=== PATIENT | female | born 1990 | race Caucasian/White ===

== ENCOUNTER 2017-03-05 13:14 | Emergency (ER) | payer BC ==
[2017-03-05 13:20] VITALS: BP 122/82; PULSE 106; TEMP 98.1; BMI 27.2
--- NOTE | 2017-03-05 13:31 | PDOC ---
History of Present Illness - General Chief Complaint: Abscess Boil Stated Complaint: LEG PAIN Time Seen by Provider: 03/05/17 13:29 History Source: Patient Exam Limitations: No Limitations - History of Present Illness Initial Comments: CHIEF COMPLAINT: 26 y/o afebrile female with leg abscess. HISTORY OF PRESENT ILLNESS: The patient states she was diagnosed with MRSA on her face last year and had to have the abscess surgically removed. She states the abscess showed up on her left leg yesterday. She denies f/c, n/v/d, streaking. She also informs me she is . Vital signs on arrival are notable for pulse of 106. REVIEW OF SYSTEMS: GENERAL/CONSTITUTIONAL: No fever/chills. No weakness. No weight change. MUSCULOSKELETAL: No joint or muscle swelling or pain. No neck or back pain. SKIN: +painful abscess to left leg. NEUROLOGIC: No headache, vertigo, loss of consciousness, or loss of sensation. PHYSICAL EXAM: VITAL_SIGNS: within normal limits GENERAL_APPEARANCE: alert, cooperative, no obvious discomfort. MENTAL_STATUS: speech clear, oriented X 3, responds appropriately to questions. NEURO: motor intact and sensory intact in injured extremity. EXTREMITIES: 0.5cm left, medial, proximal, slightly raised, non fluctuant papule of thigh with o.5cm surrounding erythema. No streaking. SKIN: warm, dry, good color. Past History - Past Medical History Allergies/Adverse Reactions: Allergies Allergy/AdvReac Type Severity Reaction Status Date / Time No Known Allergies Allergy Verified 03/05/17 13:16 Home Medications: Ambulatory Orders NK [No Known Home Medication] 03/05/17 Anemia: No Asthma: No Cancer: No Cardiac Disorders: No CVA: No COPD: No CHF: No Dementia: No Diabetes: No GI Disorders: No Disorders: No HTN: No Hypercholesterolemia: No Liver Disease: No Seizures: No Thyroid Disease: No - Surgical History Abdominal Surgery: No Appendectomy: No Cardiac Surgery: No Cholecystectomy: No Lung Surgery: No Neurologic Surgery: No Orthopedic Surgery: No - Immunization History Immunization Up to Date: Yes - Psycho/Social/Smoking Cessation Hx Anxiety: No Suicidal Ideation: No Smoking History: Never smoked Have you smoked in the past 12 months: No Information on smoking cessation initiated: No Hx Alcohol Use: No Drug/Substance Use Hx: No Substance Use Type: None Hx Substance Use Treatment: No *Physical Exam - Vital Signs Last Vital Signs Temp Pulse Resp BP Pulse Ox 98.1 F 106 H 18 122/82 100 03/05/17 13:17 03/05/17 13:17 03/05/17 13:17 03/05/17 13:17 03/05/17 13:17 Medical Decision Making - Medical Decision Making A/P: 26 y/o afebrile, female with very small left leg non fluctuant abscess/cellulitis with prior history of MRSA. Given the patient is will instruct her to apply hot compresses hourly at home in the hopes of the abscess opening and draining. Will not give abx at this time given her . Instructed the patient to return to the ER if she develops fever, the abscess does not open/worsens, or if any other concerning symptoms arise. The patient verbalizes understanding of all instructions, has no further questions and is awaiting discharge. *DC/Admit/Observation/Transfer Diagnosis at time of Disposition: Left leg cellulitis - Discharge Dispostion Disposition: HOME Condition at time of disposition: Good - Patient Instructions Printed Discharge Instructions: DI for Cellulitis -- Adult Additional Instructions: Discharge Instructions: -Apply hot compresses hourly for the next few days until abscess opens -Return to the ER with any worsening or concerning symptoms, including if the abscess doesn't open or gets worse.
== END 2017-03-05 14:05 | disposition home or self-care (01) ==
LOC: JERFT 13:14
DX: O26.899 Other specified pregnancy related conditions, unspecified trimester (principal); L03.116 Cellulitis of left lower limb; Z86.14 Personal history of Methicillin resistant Staphylococcus aureus infection
CPT/HCPCS: 99281-25

== ENCOUNTER 2017-03-06 16:47 | Emergency (ER) | payer BC ==
[2017-03-06 16:52] VITALS: BP 147/83; PULSE 77; TEMP 98.3; BMI 27.9
[2017-03-06] MEDS ORDERED: ACETAMINOPHEN 500 MG TABLET (FP) PO ONE (17:38)
[2017-03-06] MEDS ORDERED: ACETAMINOPHEN 500 MG TABLET (FP) ONE (17:40)
--- NOTE | 2017-03-06 18:18 | PDOC ---
History of Present Illness - General Chief Complaint: Abscess Boil Stated Complaint: LEG PAIN Time Seen by Provider: 03/06/17 17:36 History Source: Patient Exam Limitations: No Limitations - History of Present Illness Initial Comments: 03/06/17 18:16 My Chief complaint: Left upper thigh raised tender area getting worse History of present illness: Patient is a 26-year-old female with a history of having infections of the skin with MRSA here today with a raised tender reddened area to her left proximal medial thigh that is getting worse. Patient was seen here yesterday was told to apply warm soaks to area patient did and reports area is more tender. Patient has not taken anything for pain. Patient took a home test that was positive yesterday. Patient requesting test done here. Patient denies any fever. Patient reports having had MRSA on all her left cheek left wrist and other parts of her body. Patient reports that she was admitted here due to the infection with MRSA on her left cheek in 2015. Timing/Duration: getting worse (left medial proximal thigh ) Severity: moderate Associated Symptoms: reports: denies symptoms Past History - Past Medical History Allergies/Adverse Reactions: Allergies Allergy/AdvReac Type Severity Reaction Status Date / Time No Known Allergies Allergy Verified 03/06/17 16:52 Home Medications: Ambulatory Orders NK [No Known Home Medication] 03/05/17 Anemia: No Asthma: No Cancer: No Cardiac Disorders: No CVA: No COPD: No CHF: No Dementia: No Diabetes: No GI Disorders: No Disorders: No HTN: No Hypercholesterolemia: No Liver Disease: No Seizures: No Thyroid Disease: No Other medical history: h/o MRSA - Surgical History Abdominal Surgery: No Appendectomy: No Cardiac Surgery: No Cholecystectomy: No Lung Surgery: No Neurologic Surgery: No Orthopedic Surgery: No - Immunization History Immunization Up to Date: Yes - Psycho/Social/Smoking Cessation Hx Anxiety: No Suicidal Ideation: No Smoking History: Never smoked Have you smoked in the past 12 months: No Hx Alcohol Use: Yes (SOCIAL) Drug/Substance Use Hx: No Substance Use Type: None Hx Substance Use Treatment: No Review of Systems - Review of Systems Able to Perform ROS?: Yes Constitutional: No: Symptoms Reported HEENTM: No: Symptoms Reported Respiratory: No: Symptoms reported Cardiac (ROS): No: Symptoms Reported ABD/GI: No: Symptoms Reported Musculoskeletal: No: Symptoms Reported Integumentary: Yes: Other (left medial proximal thigh raised tender area f) Neurological: No: Symptoms reported *Physical Exam - Vital Signs Last Vital Signs Temp Pulse Resp BP Pulse Ox 98.3 F 77 20 147/83 99 03/06/17 16:49 03/06/17 16:49 03/06/17 16:49 03/06/17 16:49 03/06/17 16:49 - Physical Exam General Appearance: Yes: Appropriately Dressed Respiratory/Chest: positive: Lungs Clear, Normal Breath Sounds. negative: Chest Tender, Respiratory Distress Cardiovascular: positive: Regular Rhythm, Regular Rate, S1, S2 Integumentary: positive: Other (left proximal medial thigh raised tender fluculant area dime size ) Neurologic: positive: Normal Response, Respond to painful stimul (left medial thigh) Procedures - Consent Consent obtained: From Patient - Incision and Drainage I&D Site: Left: Leg (medial proximal thigh ) Betadine cleansed: Yes Anesthesia: 1% Lidocaine Blade Size: 11 Attempts: 1 Complications: none Dressing: Yes (DSD with tegaderm ) ED Treatment Course - ADDITIONAL ORDERS Additional order review: Laboratory Results 03/06/17 17:42 Urine HCG, Qual Positive - Medications Given in the ED: ED Medications Discontinued Medications Generic Name Dose Route Start Last Admin Trade Name Killian PRN Reason Stop Dose Admin Acetaminophen 1,000 mg 03/06/17 17:38 03/06/17 17:42 Tylenol - PO 03/06/17 17:39 1,000 mg ONCE ONE Administration Medical Decision Making - Medical Decision Making 03/06/17 18:18 Patient is a 26-year-old female with a history of having infections of the skin with MRSA here today with a raised tender reddened area to her left proximal medial thigh that is getting worse. Patient was seen here yesterday was told to apply warm soaks to area patient did and reports area is more tender. Patient has not taken anything for pain. Patient took a home test that was positive yesterday. Patient requesting test done here. Patient denies any fever. Patient reports having had MRSA on all her left cheek left wrist and other parts of her body. Patient reports that she was admitted here due to the infection with MRSA on her left cheek in 2015. Left medial proximal thigh abscess PLAN: acetaminophen in 1000 mg by mouth now I & D left thigh abscess with minimal return of white thick substance Wound C & S Patient to apply warm soaks to area every couple of hours while awake today tomorrow and to return for wound check in 2 days *DC/Admit/Observation/Transfer Diagnosis at time of Disposition: Abscess of left thigh - Discharge Dispostion Disposition: HOME Condition at time of disposition: Stable - Patient Instructions Additional Instructions: apply warm soaks to left thigh tender area to help facilitate drainage every 2 hours while awake Cleanse area with antibacterial soap and water twice daily do not apply any ointments put on dressing during day let air out at night Tylenol or acetaminophen as needed as directed by salt maker for pain Return here in 2 days for wound check or sooner if any fever or redness around wound Patient voiced understanding of discharge instructions all questions were answered
== END 2017-03-06 18:28 | disposition home or self-care (01) ==
LOC: JERFT 16:47
PROC: 0H9JXZZ Drainage of Left Upper Leg Skin, External Approach (ICD-10-PCS; principal; 2017-03-06)
DX: L02.416 Cutaneous abscess of left lower limb (principal)
CPT/HCPCS: 84703; 87070; 87186; 87205; 99281-25

== ENCOUNTER 2017-09-02 19:26 | Emergency (ER) | payer BC ==
--- NOTE | 2017-09-02 20:14 | PDOC ---
Rapid Medical Evaluation Time Seen by Provider: 09/02/17 20:09 Medical Evaluation: Allergies Allergy/AdvReac Type Severity Reaction Status Date / Time No Known Allergies Allergy Verified 03/06/17 16:52 09/02/17 20:10 I have performed a brief in-person evaluation of this patient. The patient presents with a chief complaint of: abscess to right side of face since yesterday. Patient reports history of MRSA, complaining of pain and redness at site. Reports chills. implanon in place Pertinent physical exam findings: NAD HEENT:small abscess tor right temporal region of face, indurated and erythematous, PERRL lungs clear, unlabored breathing neuro: EOMI, steady gait I have ordered the following: analgesia The patient will proceed to the ED for further evaluation.
[2017-09-02 20:15] VITALS: BP 145/86; PULSE 91; TEMP 98.5; BMI 26.4
[2017-09-02] MEDS ORDERED: IBUPROFEN 600 MG TABLET (FP) PO ONE ×2 (20:17→20:35)
--- NOTE | 2017-09-02 20:38 | PDOC ---
History of Present Illness - General Chief Complaint: Wound Infection Stated Complaint: BUMP Time Seen by Provider: 09/02/17 20:09 History Source: Patient - History of Present Illness Timing/Duration: reports: yesterday Location: reports: face Past History - Past Medical History Allergies/Adverse Reactions: Allergies Allergy/AdvReac Type Severity Reaction Status Date / Time No Known Allergies Allergy Verified 03/06/17 16:52 Home Medications: Ambulatory Orders Clindamycin [Cleocin -] 300 mg PO Q6HPO #28 capsule 09/02/17 Ibuprofen [Motrin -] 600 mg PO QID #28 tablet 09/02/17 Anemia: No Asthma: No Cancer: No Cardiac Disorders: No CVA: No COPD: No CHF: No Dementia: No Diabetes: No GI Disorders: No Disorders: No HTN: No Hypercholesterolemia: No Liver Disease: No Seizures: No Thyroid Disease: No - Surgical History Abdominal Surgery: No Appendectomy: No Cardiac Surgery: No Cholecystectomy: No Lung Surgery: No Neurologic Surgery: No Orthopedic Surgery: No - Immunization History Immunization Up to Date: Yes - Suicide/Smoking/Psychosocial Hx Smoking History: Never smoked Have you smoked in the past 12 months: No Hx Alcohol Use: Yes (SOCIAL) Drug/Substance Use Hx: No Substance Use Type: None Hx Substance Use Treatment: No Review of Systems - Review of Systems Constitutional: No: Chills, Fever *Physical Exam - Vital Signs Last Vital Signs Temp Pulse Resp BP Pulse Ox 98.5 F 91 H 145/86 99 09/02/17 20:05 09/02/17 20:05 09/02/17 20:05 09/02/17 20:05 - Physical Exam General Appearance: Yes: Appropriately Dressed. No: Apparent Distress HEENT: positive: Normal Voice, Other (pustule to L congregational) Neck: positive: Supple Respiratory/Chest: negative: Respiratory Distress Integumentary: positive: Dry, Warm Neurologic: positive: Fully Oriented, Alert, Normal Mood/Affect Procedures - Incision and Drainage I&D Site: Right: Other (R congregational) Betadine cleansed: Yes Anesthesia: 1% Lidocaine Volume(ml): 5 Blade Size: 11 Attempts: 1 (copious purulent discharge) Plain Packing: No Dressing: Yes Medical Decision Making - Medical Decision Making 09/02/17 20:34 26-year-old female, history of recurrent MRSA abscesses, here with pain and swelling to R side of face since yesterday. No fever or chills. Patient well- appearing and stable with what appears to be a small pustule to right congregational, does not involve periorbital area. Will perform I&D in ED and send home with antibiotics with MRSA coverage with wound check in 2 days. Tetanus UTD 09/02/17 20:56 Pt s/p I&D in ED with copious purulent discharge. No need for packing placement as wound superficial. Topical antibiotics and sterile dressing place. Patient to start Clindamycin immediately and to return to ED in 2 days for wound check. Reasons to return sooner discussed with patient *DC/Admit/Observation/Transfer Diagnosis at time of Disposition: Facial abscess - Discharge Dispostion Disposition: HOME Condition at time of disposition: Improved - Prescriptions Prescriptions: Clindamycin [Cleocin -] 300 mg PO Q6HPO #28 capsule Ibuprofen [Motrin -] 600 mg PO QID #28 tablet - Referrals - Patient Instructions Printed Discharge Instructions: DI for Incision and Drainage of a Skin Abscess Additional Instructions: Keep wound clean and dry for 2 days, after which you can apply warm compresses for 20 minutes several times a day. Take antibiotics as directed Return to ER for wound check in 2 days - Post Discharge Activity Forms/Work/School Notes: Back to Work
[2017-09-02] MEDS ORDERED: CLINDAMYCIN HCL 150 MG CAPSULE (FP) PO ONE (20:54)
== END 2017-09-02 21:01 | disposition home or self-care (01) ==
LOC: JERFT 19:26
PROC: 0H91X0Z Drainage of Face Skin with Drainage Device, External Approach (ICD-10-PCS; principal; 2017-09-02)
DX: L02.01 Cutaneous abscess of face (principal); Z86.14 Personal history of Methicillin resistant Staphylococcus aureus infection
CPT/HCPCS: 99281-25

== ENCOUNTER 2018-03-27 16:55 | Emergency (ER) | payer SELFPAY ==
[2018-03-27] MEDS ORDERED: DIPHTH,PERTUSS(ACELL),TET 0.5 ML DISP.SYRIN IM ONE (17:22)
--- NOTE | 2018-03-27 17:22 | PDOC ---
Rapid Medical Evaluation Time Seen by Provider: 03/27/18 17:17 Medical Evaluation: Allergies Allergy/AdvReac Type Severity Reaction Status Date / Time No Known Allergies Allergy Verified 03/06/17 16:52 03/27/18 17:18 I have performed a brief-in person evaluation of this patient in triage. The patient presents to the ER c/o: left foot got stuck in a public drain when she tripped and fell @~1630hrs Pertinent PE findings: superficial 2cm transverse abrasion to tight mid to upper medial lower leg +Left 2nd toenail avulsed off Left great toenail broken UNK LAST TETANUS I have ordered the following: boostrix The patient will proceed to the ED for further evaluation. 03/27/18 17:23
[2018-03-27 17:28] VITALS: BP 147/89; PULSE 68; TEMP 98.3; BMI 28.7
[2018-03-27] MEDS ORDERED: BACITRACIN 15 GM TUBE TOPICAL OINTMENT TP ONE (17:48)
[2018-03-27] MEDS ORDERED: KETOROLAC TROMETHAMINE 60 MG/2 ML VIAL IM ONE (17:48)
--- NOTE | 2018-03-27 17:48 | PDOC ---
History of Present Illness - General Chief Complaint: Injury Stated Complaint: LEG INJURY Time Seen by Provider: 03/27/18 17:17 History Source: Patient Exam Limitations: No Limitations - History of Present Illness Initial Comments: CHIEF COMPLAINT: 27 y/o afebrile female c/o right leg laceration and left toe nail injury today. HISTORY OF PRESENT ILLNESS: patient was shopping at [employer] when her left foot got caught in a metal grate. her left second toe nail was ripped off and she sustained a cut to her right leg. patient does not know her tetanus status. Vital signs on arrival are within normal limits. REVIEW OF SYSTEMS: GENERAL/CONSTITUTIONAL: No fever/chills. No weakness. No weight change. MUSCULOSKELETAL: +left second toe nail injury. cut to right leg. No neck or back pain. SKIN: No rash or easy bruising. NEUROLOGIC: No headache, vertigo, loss of consciousness, or loss of sensation. PHYSICAL EXAM: VITAL_SIGNS: within normal limits GENERAL_APPEARANCE: alert, cooperative, mild obvious discomfort. MENTAL_STATUS: speech clear, oriented X 3, responds appropriately to questions. NEURO: motor intact and sensory intact in injured extremity. EXTREMITIES: 4cm very superficial abrasion to right medial mid lower leg with minimal bleeding. Left 2nd toe with almost entire nail sheared off. 2nd left toe TTP with minimal swelling and no deformities that is TTP. SKIN: warm, dry, good color. Past History - Past Medical History Allergies/Adverse Reactions: Allergies Allergy/AdvReac Type Severity Reaction Status Date / Time No Known Allergies Allergy Verified 03/27/18 17:18 Home Medications: Ambulatory Orders Naproxen 500 mg PO BID #20 tablet 03/27/18 Anemia: No Asthma: No Cancer: No Cardiac Disorders: No CVA: No COPD: No CHF: No DVT: No Dementia: No Diabetes: No GI Disorders: No Disorders: No HTN: No Hypercholesterolemia: No Liver Disease: No Seizures: No Thyroid Disease: No - Surgical History Abdominal Surgery: No Appendectomy: No Cardiac Surgery: No Cholecystectomy: No Lung Surgery: No Neurologic Surgery: No Orthopedic Surgery: No - Immunization History Immunization Up to Date: Yes - Suicide/Smoking/Psychosocial Hx Smoking History: Never smoked Have you smoked in the past 12 months: No Information on smoking cessation initiated: No Hx Alcohol Use: No Drug/Substance Use Hx: No Substance Use Type: None Hx Substance Use Treatment: No *Physical Exam - Vital Signs Last Vital Signs Temp Pulse Resp BP Pulse Ox 98.3 F 68 17 147/89 99 03/27/18 17:19 03/27/18 17:19 03/27/18 17:19 03/27/18 17:19 03/27/18 17:19 Medical Decision Making - Medical Decision Making A/P: 27 y/o female with abrasion to right leg and toe nail injury to left foot. Will clean abrasion with hydrogen peroxide, bacitracin and cover. soaked left toe with hydrogen peroxide. Will cover with non adherent bandage and abel tape to adjacent toe. Will give Boostrix and IM toradol. Instructed patient to keep both clean and dry and return to the ER with any worsening or concerning symptoms. Patient is on control so did not check prior to giving toradol. Xray left toes IMPRESSION: No fracture. Provided patient with a soft shoe. The patient verbalizes understanding of all instructions, has no further questions and is awaiting discharge. *DC/Admit/Observation/Transfer Diagnosis at time of Disposition: Nail bed injury Abrasion of leg Qualifiers: Encounter type: initial encounter Laterality: right Qualified Code(s): S80.811A - Abrasion, right lower leg, initial encounter - Discharge Dispostion Disposition: HOME Condition at time of disposition: Good - Prescriptions Prescriptions: Naproxen 500 mg PO BID #20 tablet - Referrals - Patient Instructions Printed Discharge Instructions: DI for Abrasion, DI for Nail Bed Injury Additional Instructions: Discharge Instructions: -You had a tetanus shot today; you are now up to date for 10 years -Keep both areas clean and dry -Apply ice to toe and elevate foot to help with pain and swelling -A prescription for pain medicine has been sent to your pharmacy; please take with food -Return to the ER with any worsening or concerning symptoms - Post Discharge Activity Forms/Work/School Notes: Back to Work
[2018-03-27] MEDS ORDERED: KETOROLAC TROMETHAMINE 60 MG/2 ML VIAL ONE (17:57)
[2018-03-27] MEDS ORDERED: BACITRACIN 15 GM TUBE TOPICAL OINTMENT ONE (17:57)
== END 2018-03-27 18:51 | disposition home or self-care (01) ==
LOC: JERFT 16:55
PROC: 3E0234Z Introduction of Serum, Toxoid and Vaccine into Muscle, Percutaneous Approach (ICD-10-PCS; principal; 2018-03-27)
PROC: 3E0233Z Introduction of Anti-inflammatory into Muscle, Percutaneous Approach (ICD-10-PCS; 2018-03-27)
DX: S80.811A Abrasion, right lower leg, initial encounter (principal); S91.202A Unspecified open wound of left great toe with damage to nail, initial encounter; S91.205A Unspecified open wound of left lesser toe(s) with damage to nail, initial encounter; W17.89XA Other fall from one level to another, initial encounter; Y93.89 Activity, other specified; Y92.512 Supermarket, store or market as the place of occurrence of the external cause; Y99.8 Other external cause status
CPT/HCPCS: 73660-TC-LT-FY; 90715; 99281-25

== ENCOUNTER 2022-09-19 19:21 | Emergency (ER) | payer OTHER ==
[2022-09-19 19:28] VITALS: BP 139/83; PULSE 65; RESP 17; TEMP 98; BMI 31.5
[2022-09-19] MEDS ORDERED: ONDANSETRON 4 MG/2 ML VIAL IVPUSH ONE (20:28)
[2022-09-19] MEDS ORDERED: ONDANSETRON *ODT* 4 MG TABLET SL ONE (20:32)
[2022-09-19] MEDS ORDERED: ONDANSETRON *ODT* 4 MG TABLET ONE (20:36)
[2022-09-19 20:49] LABS: EPI CELLS 18 /uL (0-25.1); HYALINE CASTS 0 /uL (0-3.1); PH,URINE 5.5 (5.0-8.0); URINE APPEARANCE CLOUDY; URINE BACTERIA 970 /uL (0-1359); URINE BILIRUBIN NEGATIVE (NEGATIVE); URINE COLOR YELLOW; URINE GLUCOSE (UA) NEGATIVE (NEGATIVE); URINE KETONE NEGATIVE (NEGATIVE); URINE LEUK ESTERASE 3+ (NEGATIVE); URINE NITRITE NEGATIVE (NEGATIVE); URINE PROTEIN 2+ (NEGATIVE); URINE RBC 1643 /uL (0-23.9); URINE UROBILINOGEN 0.2 mg/dL (0.2-1.0); URINE WBC 2186 /uL (0-25.8)
[2022-09-19] MEDS ORDERED: CEPHALEXIN MONOHYDRATE 250 MG CAPSULE (FP) PO ONE (21:07)
[2022-09-19] MEDS ORDERED: CEPHALEXIN MONOHYDRATE 250 MG CAPSULE (FP) ONE (21:16)
== END 2022-09-19 22:05 | disposition home or self-care (01) ==
LOC: JER 19:21
DX: N39.0 Urinary tract infection, site not specified (principal)
CPT/HCPCS: 81003; 84703; 87086; 87186; 99283-25; Q0162

== ENCOUNTER 2023-07-01 09:10 | Inpatient (IN) | payer OTHER ==
[2023-07-01] MEDS ORDERED: DINOPROSTONE 10 MG VAGINAL SUPPOSITORY VG STA ×2 (10:10→22:38)
[2023-07-01] MEDS: ELECTROLYTE-148 SOLN 1,000 ML IV SCH ×2 (10:20→17:14)
[2023-07-01 11:02] VITALS: BMI 35.3
[2023-07-01 11:02] LABS: BASO % 0.3 % (0-2.0); EOS % 2.3 % (0-4.5); HEMATOCRIT 35.5 % (32.4-45.2); HEMOGLOBIN 11.8 GM/dL (10.7-15.3); LYMPH % 16.5 % (8-40); MCHC 33.3 g/dl (32.0-36.0); MEAN CELL VOLUME 90.3 fl (80-96); MEAN PLT VOLUME 9.6 fl (7.5-11.1); MONO % 7.1 % (3.8-10.2); NEUT % 73.8 % (42.8-82.8); PLATELET COUNT 169 10^3/uL (134-434); RBC 3.94 M/mm3 (3.60-5.2); RDW 13.7 % (11.6-15.6)
[2023-07-01 11:20] LABS: CALCIUM 8.6 mg/dL (8.5-10.1); POTASSIUM 4.1 mmol/L (3.5-5.1)
[2023-07-01 11:21] LABS: BLOOD UREA NITROGEN 6.5 mg/dL (7-18)
[2023-07-01 11:23] LABS: INR 0.9 (0.83-1.09); PROTHROMBIN TIME (PATIENT) 10.5 SEC (9.7-13.0)
[2023-07-01 11:24] LABS: CREATININE 0.5 mg/dL (0.55-1.3)
[2023-07-02] MEDS: ELECTROLYTE-148 SOLN 1,000 ML IV SCH (01:00)
[2023-07-02] MEDS ORDERED: FENTANYL/BUPIVACAINE/NS/PF - PCEA - 50 ML DISP.SYRIN EP ONE ×2 (02:32→06:24)
[2023-07-02] MEDS: FENTANYL/BUPIVACAINE/NS/PF - PCEA - 50 ML DISP.SYRIN EP SCH ×2 (02:55→06:25)
[2023-07-02] MEDS ORDERED: NALOXONE HCL 0.4 MG/ML VIAL IVPUSH PRN (03:06)
[2023-07-02] MEDS ORDERED: FENTANYL/BUPIVACAINE/NS/PF - PCEA - 50 ML DISP.SYRIN EP SCH (03:15)
[2023-07-02] MEDS ORDERED: OXYTOCIN 20 UNITS in 0.9% NS 20 UNIT/1,000 ML INFUS.BAG IV ONE (07:10)
[2023-07-02] MEDS ORDERED: WITCH HAZEL 50% (TUCKS) 40 PAD/JAR PAD TP PRN (08:28)
[2023-07-02] MEDS ORDERED: ACETAMINOPHEN 325 MG TABLET (FP) PO PRN (08:28)
[2023-07-02] MEDS ORDERED: IBUPROFEN 600 MG TABLET (FP) PO PRN (08:28)
[2023-07-02] MEDS ORDERED: BISACODYL 10 MG SUPP.RECT RC PRN (08:28)
[2023-07-02] MEDS ORDERED: oxyCODONE HCL 5 MG TABLET PO PRN (08:28)
[2023-07-02] MEDS ORDERED: BENZOCAINE 28 GM HEMORRHOIDAL OINTMENT TP PRN (08:28)
[2023-07-02] MEDS ORDERED: OXYTOCIN 20 UNITS in 0.9% NS 20 UNIT/1,000 ML INFUS.BAG IV SCH (08:30)
[2023-07-03 08:57] LABS: BASO % 0.4 % (0-2.0); HEMATOCRIT 30.4 % (32.4-45.2); HEMOGLOBIN 10.2 GM/dL (10.7-15.3); LYMPH % 19.1 % (8-40); MCH 30.3 pg (25.7-33.7); MCHC 33.6 g/dl (32.0-36.0); MEAN CELL VOLUME 90.1 fl (80-96); MEAN PLT VOLUME 9.7 fl (7.5-11.1); MONO % 8.7 % (3.8-10.2); NEUT % 69.8 % (42.8-82.8); PLATELET COUNT 144 10^3/uL (134-434); RBC 3.38 M/mm3 (3.60-5.2); RDW 13.8 % (11.6-15.6); WHITE BLOOD COUNT 12.6 K/mm3 (4.0-10.0)
[2023-07-04 09:00] VITALS: BP 131/75; PULSE 69; RESP 17; TEMP 97.9
== END 2023-07-04 13:50 | disposition home or self-care (01) | DRG 560 ==
LOC: JLDR 09:10 → J3W 07-02 10:05
PROVIDERS: ADMIT Student in an Organized Health Care Education/Training Program; ATTEND Student in an Organized Health Care Education/Training Program
PROC: 3E0P7VZ Introduction of Hormone into Female Reproductive, Via Natural or Artificial Opening (ICD-10-PCS; 2023-07-01)
PROC: 10E0XZZ Delivery of Products of Conception, External Approach (ICD-10-PCS; principal; 2023-07-02)
DX: O80 Encounter for full-term uncomplicated delivery (principal); Z3A.41 41 weeks gestation of pregnancy; Z37.0 Single live birth
CPT/HCPCS: 36415; 80048; 85025; 85610; 85730; 86780; 86850; 86900; 86901; 87081